=== PATIENT | female | born 1990 | race Caucasian/White ===

== ENCOUNTER → 2021-11-23 | Day surgery (SDC) | payer OTHER ==
[~2021-11-23] VITALS: Ht 175.3 cm; Wt 117.9 kg
[~2021-11-23] MED LIST: CALCIUM + VITA1 EACH PO; FLONASE ALLER15.8 ML; LEXAPRO 10MG TA10 MG PO; PROAIR HFA8.5 GM INH; ZYRTEC10 MG PO
[2021-11-23 06:55] LABS: HCG (URINE) SCREEN NEGATIVE (NEGATIVE)
== END | disposition home or self-care (01) ==
LOC: FAS 05:57
PROVIDERS: Student in an Organized Health Care Education/Training Program
DX: D12.5 Benign neoplasm of sigmoid colon (principal); K64.8 Other hemorrhoids; E03.9 Hypothyroidism, unspecified; I10 Essential (primary) hypertension; Z91.040 Latex allergy status; Z88.0 Allergy status to penicillin; Z88.2 Allergy status to sulfonamides; Z87.891 Personal history of nicotine dependence; Z79.899 Other long term (current) drug therapy
CPT/HCPCS: 84703; J2704; J7120